=== PATIENT | male | born 1975 ===

== ENCOUNTER → 2018-01-13 13:22 | Outpatient (REF) | payer OTHER, SELFPAY | LOC: LAB 13:22 | PROVIDERS: Visit Provider Otolaryngology | DX: K11.21 Acute sialoadenitis (principal) | CPT/HCPCS: 87070; 87075; 87077; 87147; 87205 ==

== ENCOUNTER → 2018-02-11 13:22 | Outpatient (REF) | payer OTHER, SELFPAY | LOC: LAB 13:22 | PROVIDERS: Visit Provider Otolaryngology | DX: L02.811 Cutaneous abscess of head [any part, except face] (principal) | CPT/HCPCS: 87070; 87075; 87205 ==